=== PATIENT | female | born 2000 | race American Indian/Alaskan Native ===

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

== ENCOUNTER 2019-12-01 19:47 | Emergency (ER) | payer MEDICAID ==
[2019-12-01 20:45] VITALS: BP 124/66
--- NOTE | 2019-12-01 21:26 | Emergency Department Report ---
Chief Complaint: Medical Clearance Stated Complaint: OVERHEATING, SWEATS(16 WKS PREG) Time Seen by Provider: 12/01/19 21:23 - HPI History of Present Illness: 19-year-old -[place] female presents to the emergency room stating that she needs a work excuse because she gets overheated and starts to sweat shortness of breath while at work. Patient reports that she is 16 weeks . Patient denies any vaginal bleeding pelvic pain no nausea no vomiting. Patient reports that she is followed by [facility]. - Exam Vital Signs: Vital Signs 12/01/19 12/01/19 20:37 21:06 Temperature 122.0 F H 97.8 F Pulse Rate 79 Respiratory 17 Rate Blood Pressure 124/66 O2 Sat by Pulse 100 Oximetry Physical Exam: Gen: alert oriented NAD Cardic: regular rate and rhythm no murmurs appreciated Resp: Clear to auscultation bilateral no wheezing no rales or rhonchi. Abdomen: Soft nontender nondistended normal bowel sounds. MSE screening note: Focused history and physical exam performed. Due to findings the following was ordered: 19-year-old -[place] female presents to the emergency room stating that she needs a work excuse because she gets overheated and starts to sweat shortness of breath while at work. Patient reports that she is 16 weeks . Patient denies any vaginal bleeding pelvic pain no nausea no vomiting. Patient reports that she is followed by [facility]. Patient has no risk for loss of limb or . Discussed the patient that she needs to follow-up with [facility] and they are able to give her a work excuse. ED Disposition for MSE Disposition: MED SCREENING EXAM-LEFT Is pt being admited?: No Does the pt Need Aspirin: No Condition: Stable Additional Instructions: Follow-up with your [facility] RN to obtain a work excuse or work limitations. Referrals: PRIMARY CARE, [Primary Care Provider] - 3-5 Days [facility] [Provider Group] - 3-5 Days Forms: Work/School Release Form(ED)
== END 2019-12-01 21:52 | disposition left against medical advice (07) ==
LOC: ED 19:47
DX: O26.892 Other specified pregnancy related conditions, second trimester (principal); R06.02 Shortness of breath; L75.0 Bromhidrosis; Z3A.16 16 weeks gestation of pregnancy
CPT/HCPCS: 99282

== ENCOUNTER 2019-12-30 14:48 | Emergency (ER) | payer MEDICAID ==
[2019-12-30] MEDS ORDERED: ONDANSETRON 4 MG/2 ML INJ IV ONE (16:16)
[2019-12-30] MEDS ORDERED: SODIUM CHLORIDE 0.9% 1000 ML 1,000 ML IV ONE (16:16)
[2019-12-30 16:57] LABS: Basophils % (Auto) 0.3 % (0.0-1.8); Eosinophils % (Auto) 0.4 % (0.0-4.3); Hematocrit 35.5 % (30.3-42.9); Hemoglobin 11.6 gm/dl (10.1-14.3); Lymphocytes # (Auto) 1.4 K/mm3 (1.2-5.4); Lymphocytes % (Auto) 15.5 % (13.4-35.0); Mean Corpuscular HGB Conc 33 % (30-34); Mean Corpuscular Volume 78 fl (79-97); Monocytes # (Auto) 0.5 K/mm3 (0.0-0.8); Monocytes % (Auto) 5.2 % (0.0-7.3); Platelet Count 215 K/mm3 (140-440); Red Blood Count 4.59 M/mm3 (3.65-5.03); Red Cell Distribution Width 14.6 % (13.2-15.2)
[2019-12-30 17:10] LABS: BUN/Creatinine Ratio 10; Blood Urea Nitrogen 6 mg/dL (7-17); Calcium 8.8 mg/dL (8.4-10.2); Hemolysis Index 9
[2019-12-30] MEDS ORDERED: D5W/0.9% NACL 1,000 ML IV SCH (18:00)
--- NOTE | 2019-12-30 18:12 | Emergency Department Report ---
ED General Adult HPI - General Chief complaint: Arrhythmia/Palpitations Stated complaint: /SVT/HEART RATE Time Seen by Provider: 12/30/19 16:09 Source: patient, EMS Mode of arrival: Stretcher Limitations: No Limitations - History of Present Illness Initial comments: Patient is a 19-year-old F Malaysian female who is presenting with episode of SVT . Patient was at work today and while walking she became very dizzy with palpitations. Carlock very anxious and began to cry. She was assuming that she was having a anxiety attack although she is never had symptoms such as this before. Paramedics were called and her heart rate was 210. Patient was instructed on vagal maneuvers and she spontaneously converted back to sinus rhythm. Patient is currently symptom-free. She is 5 months and has had bouts of nausea and vomiting throughout the . - Related Data Home Medications Medication Instructions Recorded Confirmed Last Taken Lissa-Sequels 65-25 mg Caplet 65 mg PO QDAY 05/01/17 05/02/17 2 Days Ago ~04/29/17 Previous Rx's Medication Instructions Recorded Last Taken Type Amoxicillin/K Clav Tab [Augmentin 1 tab PO Q12HR #20 tab 12/24/19 Unknown Rx 875 mg] Allergies Allergy/AdvReac Type Severity Reaction Status Date / Time No Known Allergies Allergy Verified 05/01/17 14:13 ED Review of Systems ROS: Stated complaint: /SVT/HEART RATE Other details as noted in HPI Comment: All other systems reviewed and negative ED Past Medical Hx - Past Medical History Previous Medical History?: Yes Hx Hypertension: Yes Hx Congestive Heart Failure: No Hx Diabetes: No Hx Deep Vein Thrombosis: No Hx Renal Disease: No Hx Sickle Cell Disease: No Hx Seizures: No Hx Asthma: Yes Hx COPD: No Hx HIV: No Additional medical history: Acute Renal Failure. Sepsis - Surgical History Past Surgical History?: No - Social History Smoking Status: Never Smoker Substance Use Type: None - Medications Home Medications: Home Medications Medication Instructions Recorded Confirmed Last Taken Type Lissa-Sequels 65-25 mg Caplet 65 mg PO QDAY 05/01/17 05/02/17 2 Days Ago History ~04/29/17 Amoxicillin/K Clav Tab [Augmentin 1 tab PO Q12HR #20 tab 12/24/19 Unknown Rx 875 mg] ED Physical Exam - General Limitations: No Limitations General appearance: alert, in no apparent distress - Head Head exam: Present: atraumatic, normocephalic - Eye Eye exam: Present: normal appearance - ENT ENT exam: Present: mucous membranes moist - Neck Neck exam: Present: normal inspection - Respiratory Respiratory exam: Present: normal lung sounds bilaterally. Absent: respiratory distress, wheezes, rales, rhonchi - Cardiovascular Cardiovascular Exam: Present: regular rate, normal rhythm. Absent: systolic murmur, diastolic murmur, rubs, gallop - GI/Abdominal GI/Abdominal exam: Present: soft, normal bowel sounds. Absent: distended, tenderness, guarding, rebound - Extremities Exam Extremities exam: Present: normal inspection - Back Exam Back exam: Present: normal inspection - Neurological Exam Neurological exam: Present: alert, oriented X3 - Psychiatric Psychiatric exam: Present: normal affect, normal mood - Skin Skin exam: Present: warm, dry, intact, normal color. Absent: rash ED Course Vital Signs 12/30/19 12/30/19 15:10 15:30 Temperature 97.9 F Pulse Rate 97 H Respiratory 16 18 Rate Blood Pressure 117/87 O2 Sat by Pulse 99 100 Oximetry ED Medical Decision Making - Lab Data Result diagrams: 12/30/19 16:32 12/30/19 16:32 Lab Results 12/30/19 12/30/19 12/30/19 Range/Units 16:32 16:32 16:32 WBC 8.9 (4.5-11.0) K/mm3 RBC 4.59 (3.65-5.03) M/mm3 Hgb 11.6 (10.1-14.3) gm/dl Hct 35.5 (30.3-42.9) % MCV 78 L (79-97) fl MCH 25 L (28-32) pg MCHC 33 (30-34) % RDW 14.6 (13.2-15.2) % Plt Count 215 (140-440) K/mm3 Lymph % (Auto) 15.5 (13.4-35.0) % Tucker % (Auto) 5.2 (0.0-7.3) % Eos % (Auto) 0.4 (0.0-4.3) % Baso % (Auto) 0.3 (0.0-1.8) % Lymph # 1.4 (1.2-5.4) K/mm3 Tucker # 0.5 (0.0-0.8) K/mm3 Eos # 0.0 (0.0-0.4) K/mm3 Baso # 0.0 (0.0-0.1) K/mm3 Seg Neutrophils % 78.6 H (40.0-70.0) % Seg Neutrophils # 7.0 (1.8-7.7) K/mm3 Sodium 136 L (137-145) mmol/L Potassium 3.9 (3.6-5.0) mmol/L Chloride 104.2 (98-107) mmol/L Carbon Dioxide 18 L (22-30) mmol/L Anion Gap 18 mmol/L BUN 6 L (7-17) mg/dL Creatinine 0.6 L (0.7-1.2) mg/dL Estimated GFR > 60 ml/min BUN/Creatinine Ratio 10 % Glucose 104 H (65-100) mg/dL Calcium 8.8 (8.4-10.2) mg/dL Troponin T < 0.010 (0.00-0.029) ng/mL TSH (0.270-4.200) mlU/mL 12/30/19 Range/Units 16:32 WBC (4.5-11.0) K/mm3 RBC (3.65-5.03) M/mm3 Hgb (10.1-14.3) gm/dl Hct (30.3-42.9) % MCV (79-97) fl MCH (28-32) pg MCHC (30-34) % RDW (13.2-15.2) % Plt Count (140-440) K/mm3 Lymph % (Auto) (13.4-35.0) % Tucker % (Auto) (0.0-7.3) % Eos % (Auto) (0.0-4.3) % Baso % (Auto) (0.0-1.8) % Lymph # (1.2-5.4) K/mm3 Tucker # (0.0-0.8) K/mm3 Eos # (0.0-0.4) K/mm3 Baso # (0.0-0.1) K/mm3 Seg Neutrophils % (40.0-70.0) % Seg Neutrophils # (1.8-7.7) K/mm3 Sodium (137-145) mmol/L Potassium (3.6-5.0) mmol/L Chloride (98-107) mmol/L Carbon Dioxide (22-30) mmol/L Anion Gap mmol/L BUN (7-17) mg/dL Creatinine (0.7-1.2) mg/dL Estimated GFR ml/min BUN/Creatinine Ratio % Glucose (65-100) mg/dL Calcium (8.4-10.2) mg/dL Troponin T (0.00-0.029) ng/mL TSH 0.370 (0.270-4.200) mlU/mL - Medical Decision Making Patient is a 19-year-old F Malaysian female who had a bout of SVT prior to arrival. After walking to the bathroom patient had 1 more small run of SVT with a rate of 160 which spontaneously converted. Patient was then hydrated and given antiemetics. Laboratory studies show that her bicarb is slightly low indicative of possible dehydration. Spoke with Dr. Ferreira with cardiology who stated that the patient can be given outpatient follow-up since she is converted she has been given instructions on reasons to return the patient will be discharged home. Critical care attestation.: If time is entered above; I have spent that time in minutes in the direct care of this critically ill patient, excluding procedure time. ED Disposition Clinical Impression: Hyperemesis gravidarum, SVT (supraventricular tachycardia) Disposition: DC-01 TO HOME OR SELFCARE Is pt being admited?: No Does the pt Need Aspirin: No Condition: Stable Instructions: Supraventricular Tachycardia (ED), Palpitations (ED), Dehydration (ED), Hyperemesis Gravidarum (ED) Additional Instructions: Please return if you are unable to convert your rapid heart rate with vagal maneuvers. Forms: Work/School Release Form(ED) Time of Disposition: 18:13
[2019-12-30 18:29] LABS: Bilirubin,Urine NEG (Negative); Blood,Urine NEG (Negative); Color,Urine Straw (Yellow); Protein,Urine <15 mg/dL mg/dL (Negative); Urobilinogen,Urine < 2.0 mg/dL (<2.0); WBC,Urine < 1.0 /HPF (0.0-6.0)
[2019-12-30 19:47] VITALS: BP 122/77
== END 2019-12-30 18:54 | disposition home or self-care (01) ==
LOC: ED 14:48
DX: R00.2 Palpitations (principal); O21.0 Mild hyperemesis gravidarum
CPT/HCPCS: 36415; 80048; 81001; 84443; 84484; 85025; 93005; 96361; 96374; 99284; J2405; J7030

== ENCOUNTER 2020-05-04 03:36 | Outpatient (CLI) | payer MEDICAID ==
[2020-05-04 03:57] VITALS: BP 128/83
== END 2020-05-04 05:14 | disposition home or self-care (01) ==
LOC: TRG 03:36 → APU 03:38 → TRG 05:14
PROVIDERS: ATTEND Obstetrics & Gynecology
DX: O26.893 Other specified pregnancy related conditions, third trimester (principal); R06.02 Shortness of breath; Z3A.38 38 weeks gestation of pregnancy
CPT/HCPCS: 59025

== ENCOUNTER 2020-08-26 17:21 | Emergency (ER) | payer MEDICAID | END 2020-08-26 18:13 | LOC: ED 17:21 | DX: A64 Unspecified sexually transmitted disease (principal); Z53.21 Procedure and treatment not carried out due to patient leaving prior to being seen by health care provider ==

== ENCOUNTER 2021-08-18 19:57 | Emergency (ER) | payer MEDICAID | END 2021-08-18 21:08 | disposition left against medical advice (07) | LOC: ED 19:57 | DX: O26.892 Other specified pregnancy related conditions, second trimester (principal); R10.9 Unspecified abdominal pain; Z53.21 Procedure and treatment not carried out due to patient leaving prior to being seen by health care provider; Z3A.18 18 weeks gestation of pregnancy ==

== ENCOUNTER 2021-10-31 14:02 | Outpatient (CLI) | payer MEDICAID ==
[2021-10-31] MEDS ORDERED: LACTATED RINGERS 1,000 ML IV ONE (14:49)
[2021-10-31 15:23] LABS: Bacteria,Urine 1+ /HPF (Negative); Bilirubin,Urine NEG (Negative); Blood,Urine NEG (Negative); Color,Urine Yellow (Yellow); Mucus,Urine 3+ /HPF; Urobilinogen,Urine < 2.0 mg/dL (<2.0)
[2021-10-31 17:51] VITALS: BP 113/62
== END 2021-10-31 17:57 | disposition home or self-care (01) ==
LOC: TRG 14:02 → APU 14:04 → TRG 17:57
PROVIDERS: ATTEND Obstetrics & Gynecology
DX: O26.893 Other specified pregnancy related conditions, third trimester (principal); Z3A.28 28 weeks gestation of pregnancy
CPT/HCPCS: 36415; 59025; 81001; 82731; 87086